=== PATIENT | female | born 1955 | race Caucasian/White ===

== ENCOUNTER 2018-12-20 09:57 | Observation (INO) ==
--- NOTE | 2018-12-19 10:42 | Anesthesiology Consultation ---
Date of Service December 19, 2018 Assessment & Plan (1) Encounter for pre-operative examination: - No previous anesthesia records Chart Review Chart Review: Acceptable Risk for Surgery and Patient NOT seen in Pre Admission Testing Consults Requested none History Surgery Operation Date: 12/20/18 11:15 Proposed Procedures p Laparoscopic Cholecystectomy, Possible Cholangiogram - Anatoly Montanez MD, FACS Height/Weight Height: 5 ft Weight: 73.482 kg Allergies Allergy/AdvReac Type Severity Reaction Status Date / Time codeine AdvReac Mild Gastrointestinal Verified 11/23/18 14:24 Upset cabbage AdvReac Unknown Verified 12/19/18 11:02 chocolate flavor AdvReac Unknown Verified 12/19/18 11:02 onion AdvReac Unknown Verified 12/19/18 11:02 Medications Home Medications Medication Instructions Recorded Confirmed Last Taken cetirizine [Zyrtec] 10 mg PO DAILY 10/25/18 11/23/18 Unknown pantoprazole 40 mg PO QAM 10/25/18 11/23/18 Unknown rosuvastatin 20 mg PO HS 10/25/18 11/23/18 Unknown sertraline 25 mg PO DAILY 10/25/18 11/23/18 Unknown hyoscyamine sulfate 0.125 mg PO Q6H PRN #14 tab 11/23/18 Unknown Past Medical History Medical History Ovarian cyst GERD (gastroesophageal reflux disease) (Chronic) Hypercholesterolemia (Chronic) Chronic back pain Environmental allergies Seasonal allergies Past Family History Family History Other History of appendectomy History of cholecystectomy Past Surgical History Surgical History History of dilatation and curettage History of hysterectomy Hx of tonsillectomy History of PONV History of PONV Social History Smoking Status: Never smoker Testing Laboratory Results Laboratory Tests 11/23/18 11/23/18 13:57 13:57 WBC 7.79 Hgb 14.5 Hct 41.7 Plt Count 328 Sodium 140 Potassium 3.5 Chloride 105 Carbon Dioxide 29 BUN 13 Creatinine 0.90 Glucose 97 Electrocardiogram Date: 11/23/18 Findings: + NSR @ (78) Normal sinus rhythm with sinus arrhythmia Chest X-Ray Date: 11/23/18 Findings: + NAD FINDINGS: Lung volumes are normal. Lungs are clear. No pneumothorax or pleural effusion is noted. Cardiac size is normal. Mediastinal contours are normal. There is no free air. Bowel gas pattern is normal. IMPRESSION: 1. No free air or evidence of bowel obstruction. 2. No acute cardiopulmonary findings.
[~2018-12-20 09:57] MED LIST: LR 15ML/HR IV SCH; SCOPOLAMINE 1.5 MG TDSY TD SCH; cefUROXime 1,500 MG in DEXTROSE 5% 100 ML IV SCH
[2018-12-20] MEDS ORDERED: fentaNYL citrate 100 MCG/2 ML VIAL ONE (10:38)
[2018-12-20] MEDS ORDERED: MIDAZOLAM HCL 1 MG/ML 2ML VIAL ONE (10:38)
[2018-12-20] MEDS ORDERED: ONDANSETRON INJ 2 MG/ML 2 ML VIAL IV PRN ×2 (11:05→13:59)
[2018-12-20] MEDS ORDERED: ATROPINE SULFATE 0.1 MG/ML 10ML SYR IV PRN (11:06)
[2018-12-20] MEDS ORDERED: ePHEDrine sulfate 50 MG/ML AMP IV PRN (11:06)
[2018-12-20] MEDS ORDERED: PROMETHAZINE HCL 6.25 MG in SODIUM CHLORIDE 0.9% 50 ML IV PRN (11:06)
[2018-12-20] MEDS ORDERED: CONRAY 60% 50 ML VIAL ONE (11:07)
[2018-12-20] MEDS ORDERED: BUPIVACAINE 0.5 % 5 MG/1 ML MPF 30ML VIAL ONE (11:07)
--- NOTE | 2018-12-20 11:19 | History & Physical Bridge Note ---
Date of Service December 20, 2018 History & Physical Bridge Note I have examined the patient, reviewed the History & Physical and in the interval since the performance of the History & Physical I have noted the following changes of clinical significance: no changes noted
[2018-12-20] MEDS ORDERED: LIDOCAINE HCL 2% 2 ML VIAL/AMP(20MG/ML) INFIL ONE (12:06)
[2018-12-20] MEDS ORDERED: ROCURONIUM BROMIDE 10 MG/ML 5 ML VIAL ONE (12:06)
[2018-12-20] MEDS ORDERED: PROPOFOL IV EMULSION 10 MG/ML 20 ML VIAL IV ONE (12:06)
[2018-12-20] MEDS ORDERED: ONDANSETRON INJ 2 MG/ML 2 ML VIAL ONE (12:06)
[2018-12-20] MEDS ORDERED: NEOSTIGMINE METHYLSULFATE 5 MG/5 ML SYR ONE (12:06)
[2018-12-20] MEDS ORDERED: GLYCOPYRROLATE 0.2 MG/ML VIAL ONE (12:07)
--- NOTE | 2018-12-20 12:33 | Operative Report ---
Post Operative Report Pre & Post Diagnosis Operation Date: 12/20/18 11:15 Pre-Op Diagnosis: Cholelithiasis, chronic cholecystitis Post-Op Diagnosis: Cholelithiasis, chronic cholecystitis adhesions, acute/ chronic cholecystitis Procedure Operation Date: 12/20/18 11:15 Actual Procedures p Laparoscopic Cholecystectomy (Not Applicable) - Anatoly Montanez MD, FACS lysis of adhesions Surgeon Anatoly Montanez MD, FACS [employer] nurses Estimated Blood Loss 5 Findings Consistent with Post-Op Diagnosis Specimens gallbladder Description of Procedure see dictation I attest to the content of the Intraoperative Record and any orders documented therein. Any exceptions are noted below.
[2018-12-20] MEDS ORDERED: ACETAMINOPHEN 1,000 MG/100 ML VIAL IV ONE (12:38)
[2018-12-20] MEDS ORDERED: KETOROLAC 30 MG/ML VIAL ONE (13:01)
[2018-12-20] MEDS ORDERED: KETOROLAC 30 MG/ML VIAL IV ONE (13:04)
--- NOTE | 2018-12-20 13:04 | Anesthesiology Progress Note ---
Date of Service December 20, 2018 Anesthesia Post Procedure Vital Signs Vital Signs: Temp Pulse Resp BP Pulse Ox 12/20/18 10:49 37.0 C 91 H 20 158/75 H 97 Transfer of Care Handoff Completed per policy Notes Mental Status: alert / awake / arousable Patient Amnestic to Procedure: Yes Nausea / Vomiting: adequately controlled Pain: adequately controlled Airway Patency, RR, SpO2: stable & adequate BP & HR: stable & adequate Hydration State: stable & adequate Anesthetic Complications: no major complications apparent
[2018-12-20] MEDS: fentaNYL citrate 100 MCG/2 ML VIAL IV PRN ×2 (13:21→13:26)
[2018-12-20] MEDS ORDERED: SERTRALINE HCL 50 MG TABLET PO SCH (13:59)
[2018-12-20] MEDS ORDERED: SODIUM CHLORIDE 0.9% 1000ML 1,000 ML IV SCH (13:59)
[2018-12-20] MEDS ORDERED: HYDROmorphone INJ 0.5 MG/0.5 ML SYR IV PRN (13:59)
[2018-12-20] MEDS ORDERED: TRAMADOL HCL 50 MG TABLET PO PRN (13:59)
[2018-12-20] MEDS ORDERED: PROMETHAZINE HCL 25 MG in SODIUM CHLORIDE 0.9% 50 ML IV PRN (13:59)
[2018-12-20] MEDS ORDERED: PROMETHAZINE HCL 12.5 MG in SODIUM CHLORIDE 0.9% 50 ML IV PRN (13:59)
[2018-12-20] MEDS ORDERED: IBUPROFEN 600 MG TAB PO PRN (13:59)
[2018-12-20 14:22] LABS: Basophils # (auto) 0.02 K/uL (0-0.2); Basophils % (auto) 0.2 %; Eosinophils # (auto) 0.02 K/uL (0-0.5); Eosinophils % (auto) 0.2 %; Hematocrit (blood only) 39.3 % (37-47); Hemoglobin 13.3 g/dL (12.0-16.0); Immature Granulocytes # (auto) 0.03 K/uL (0.00-0.02); Immature Granulocytes % (auto) 0.3 %; Lymphocytes # (auto) 0.82 K/uL (1.2-3.4); Lymphocytes % (auto) 7.7 %; Mean Corpuscular Hgb Conc 33.8 g/dL (32-36); Mean Platelet Volume 10.2 fL (7.4-10.4); Monocytes # (auto) 0.47 K/uL (0.11-0.59); Monocytes % (auto) 4.4 %; Neutrophils # (auto) 9.31 K/uL (1.4-6.5); Neutrophils % (auto) 87.2 %; Platelet Count 271 K/uL (130-400); RDW Coefficient of Variation 13.7 % (11.5-14.5); RDW Standard Deviation 41.7 fL (36.4-46.3); Red Blood Count 4.68 M/uL (4.2-5.4); White Blood Count 10.67 K/uL (4.8-10.8)
[2018-12-20 14:57] LABS: Albumin Level 3.4 gm/dl (3.4-5.0); BUN Creatinine Ratio 19.6 (10-20); Bilirubin Direct 0.3 mg/dl (0-0.2); Calcium 8.3 mg/dl (8.5-10.1); Creatinine Clr Calc Pharmacy 73.7 ml/min; Est GFR (African American) 104.8; Est GFR (Non-African American) 90.4; Potassium 3.8 mmol/L (3.5-5.1)
[2018-12-20 14:59] LABS: Albumin Globulin Ratio 1.1 (0.9-2); Bilirubin,Total 0.8 mg/dl (0.2-1); Globulin 3.1 gm/dl (2.5-4.0); Phosphorus 3.8 mg/dl (2.5-4.9); Total Protein 6.5 gm/dl (6.4-8.2)
--- NOTE | 2018-12-20 15:21 | Consultation ---
Date of Consultation December 20, 2018 Assessment & Plan (1) Chronic cholecystitis with calculus: (2) S/P laparoscopic cholecystectomy: POD #0 tolerated procedure well EBL 5 ml tolerating diet, per surgery wound/pain control per surgery activity as directed by surgery encourage incentive spirometry scd/teds for vte ppx follow h/h (3) Hypercholesterolemia: Continue statin (4) GERD (gastroesophageal reflux disease): Continue PPI (5) Depression: Mood stable Continue Zoloft, patient states she is currently weaning off Zoloft and has 2 more days. (6) DVT prophylaxis: SCD/TEDs per surgery Disposition: per primary, likely discharge to home Follow up: PCP Heather Arias PA-C upon discharge Patient was seen and examined in collaboration with Dr. Barton, please see addendum Supervising Physician Co-Signing Physician Notes Patient is a 63-year-old female with history of GERD, hyperlipidemia, restless leg syndrome, depression and other problems was seen and evaluated postop after having elective elective laparoscopic cholecystectomy. Patient is doing well postop. Denies any abdominal pain. Ambulating in hallways. Denies any chest pain, shortness of breath, dizziness, nausea. Tolerating diet. +flatus, nO BM yet. On exam patient is moderately built and nourished, no apparent distress, normocephalic atraumatic, lungs are clear to auscultation, S1-S2, no murmur, abdomen soft, nontender,+ laparoscopic incisions in dressing, grossly no focal neurological deficits, no pedal edema. Pain control, DVT prophylaxis as per primary team. Agree with current management as above. I personally reviewed the record. Patient is interviewed and examined at bedside. Patient's care is coordinated with Clementina Turcios PA-C. Please refer to the documentation above for details of patient's presentation and for discussion of other issues. History of Present Illness Requesting Physician: Dr. Montanez Reason for Consultation: Post op medical management Attending Physician: Anatoly Montanez MD, [facility] History of Present Illness This is a 63 yr old F who has a significant PMH of HLD, Gerd, Chronic back pain, Depression, RLS, OA who presents to [facility] ED for elective laparoscopic cholecystomy. Boyfriend, sister and Aunt at bedside. Pt tolerated procedure well. Pt underwent lap danielle with lysis of adhesions due to a/c cholecystitis with cholelithiasis. She offers no post operative complaints. Denies f/c/s, dizziness, lightheaded, f/c/s, chest pain, sob, n/v/d, abdominal pain. She has minimal incisional discomfort. Tolerating her lunch tray. Urinating with out difficulty[facility] Montanez for post operative medical management. Allergies Allergy/AdvReac Type Severity Reaction Status Date / Time latex Allergy Intermediate RASH NEAR Verified 12/20/18 10:41 MOUTH cabbage AdvReac Intermediate UPSET Verified 12/20/18 10:41 STOMACH chocolate flavor AdvReac Intermediate UPSET Verified 12/20/18 10:41 STOMACH codeine AdvReac Intermediate Gastrointestinal Verified 12/20/18 10:41 Upset onion AdvReac Intermediate UPSET Verified 12/20/18 10:41 ALLERGIES Home Medications Home Medications Medication Instructions Recorded Confirmed Type cetirizine [Zyrtec] 10 mg PO QAM 10/25/18 12/20/18 History pantoprazole 40 mg PO QAM 10/25/18 12/20/18 History rosuvastatin 20 mg PO HS 10/25/18 12/20/18 History sertraline 25 mg PO Q2D 10/25/18 12/20/18 History hyoscyamine sulfate 0.125 mg PO Q6H PRN #14 tab 11/23/18 12/20/18 Rx Patient History Family History Grandfather (Paternal) Diabetes Mother PAD (peripheral artery disease) Father Lung cancer Social History Preferred Language: Com[place]an Communication Ability: Effective Paper Sorter And Counter Required: No Beliefs That Will Affect Care: None marital status: Single marital status details: boyfriend in room Current Living Situation: Alone current occupational status: employed current occupation: work at [employer] Other Information That Helps Us Care for You: No Feels Safe at Home: Yes Safety Concerns: Feels Safe At This Time Smoking Status: Never smoker Do You Dip or Chew Tobacco: No Second Hand Exposure: Yes Tobacco Cessation Education Requested by Patient: No Hx Alcohol Use: No Hx Substance Use: No Review of Systems Review of Systems: As noted per HPI, 10 systems reviewed and negative unless noted above. Physical Exam Physical Exam: Gen: WD/WN, F, NAD, sitting up in bed, pleasant, conversing easily Head: Normocephalic, Atraumatic Eyes: Sclera normal, no conjunctival injection, PERRLA, EOMI ENT: Gross hearing intact, normal pharynx, mucous membranes moist Neck: supple, no adenopathy, No JVD, no bruit, Resp: Clear to auscultation b/l, no wheeze, rales, rhonchi. 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 Extremities: No edema bilaterally, SCD/TEDS in place Skin: warm, moist, no rash, negative turgor, cap refill < 2sec Neuro: Alert and oriented x 3, speech normal, good mood/affect, cran nerve 2-12 intact grossly : deferred Results & Data Vital Signs (Past 12 Hours) Vital Signs Temp Pulse Pulse Resp BP BP Pulse Ox 12/20/18 15:00 36.8 C 65 16 118/83 96 12/20/18 14:30 74 18 118/63 91 12/20/18 14:04 36.2 C L 62 16 118/73 95 12/20/18 13:35 36.4 C L 60 18 113/60 96 12/20/18 13:25 59 L 18 120/59 L 94 12/20/18 13:15 58 L 18 144/67 H 99 12/20/18 13:05 64 18 151/80 H 98 12/20/18 12:55 36.5 C 82 18 152/80 H 96 12/20/18 10:49 37.0 C 91 H 20 158/75 H 97 Laboratory Results Short CBC 12/20/18 Range/Units 14:12 WBC 10.67 (4.8-10.8) K/uL Hgb 13.3 (12.0-16.0) g/dL Hct 39.3 (37-47) % Plt Count 271 (130-400) K/uL BMP 12/20/18 14:12 Sodium 138 Potassium 3.8 Chloride 103 Carbon Dioxide 25 BUN 14 Creatinine 0.72 Glucose 91 Calcium 8.3 L Liver Function 12/20/18 Range/Units 14:12 Total Bilirubin 0.8 (0.2-1) mg/dl Direct Bilirubin 0.3 H (0-0.2) mg/dl AST 44 H (15-37) U/L ALT 47 (12-78) U/L Alkaline Phosphatase 91 (45-117) U/L Albumin 3.4 (3.4-5.0) gm/dl Medications Administered Scopolamine (Transderm-Scop) 1.5 mg TD PREOP CARLOS Stop: 12/20/18 18:00 Last Admin: 12/20/18 11:11 Dose: 1.5 mg Documented by: [id number] Tramadol HCl (Ultram) 50 mg PO Q4H PRN PRN Reason: Pain Stop: 01/19/19 13:58 Last Admin: 12/20/18 14:19 Dose: 50 mg Documented by: [id number] Discontinued Medications Bupivacaine HCl (Marcaine 0.5% Mpf) Confirm Administered Dose 30 ml .ROUTE .STK- MED ONE Stop: 12/20/18 11:08 Last Admin: 12/20/18 12:22 Dose: 10 ml Documented by: [id number] Fentanyl Citrate (Fentanyl Citrate) 50 mcg IV Q5M PRN PRN Reason: PACU Use Only-Pain Stop: 12/20/18 16:06 Last Admin: 12/20/18 13:26 Dose: 50 mcg Documented by: [id number] Admin: 12/20/18 13:21 Dose: 50 mcg Documented by: [id number] Lactated Ringer's (Lr) 1,000 mls @ 15 mls/hr IV .Q24H CARLOS Stop: 12/21/18 05:59 Last Infusion: 12/20/18 11:25 Dose: 0 mls/hr Documented by: [id number] Admin: 12/20/18 11:10 Dose: 15 mls/hr Documented by: [id number] Cefuroxime Sodium 1,500 mg/ (Dextrose) 115 mls @ 230 mls/hr IV PREOP CARLOS Stop: 12/20/18 18:00 Last Infusion: 12/20/18 15:06 Dose: 0 mls/hr Documented by: [id number] Admin: 12/20/18 11:25 Dose: 230 mls/hr Documented by: [id number] Acetaminophen (Ofirmev) 1,000 mg in 100 mls @ 400 mls/hr IV NOW ONE Stop: 12/20/18 12:52 Last Infusion: 12/20/18 15:05 Dose: 0 mls/hr Documented by: [id number] Admin: 12/20/18 13:11 Dose: 400 mls/hr Documented by: [id number] Iothalamate Meglumine (Conray 60%) Confirm Administered Dose 50 ml .ROUTE .STK- MED ONE Stop: 12/20/18 11:08 Last Admin: 12/20/18 12:22 Dose: Not Given Documented by: [id number] Ketorolac Tromethamine (Toradol) Confirm Administered Dose 30 mg .ROUTE .STK-MED ONE Stop: 12/20/18 13:02 Last Admin: 12/20/18 14:10 Dose: Not Given Documented by: [id number] Ketorolac Tromethamine (Toradol) 30 mg IV NOW ONE Stop: 12/20/18 13:05 Last Admin: 12/20/18 13:05 Dose: 30 mg Documented by: [id number] ECG Rate (beats per minute): 78 Rhythm: sinus with SA
[2018-12-20] MEDS ORDERED: CHECK SCOPOLAMINE PATCH PLACEMENT SCH (16:00)
[2018-12-20] MEDS ORDERED: ROSUVASTATIN CALCIUM 20 MG TAB PO SCH (21:00)
--- NOTE | 2018-12-20 23:21 | Operative Report ---
DATE OF OPERATION: 12/20/2018 NAME OF OPERATION: Laparoscopic cholecystectomy with lysis of adhesions. PREOPERATIVE DIAGNOSIS: Biliary colic. POSTOPERATIVE DIAGNOSIS: Biliary colic with chronic and acute cholecystitis with adhesions. STAFF SURGEON: Anatoly Montanez MD. ANESTHESIA: General. PROCEDURE DESCRIPTION: The patient was brought in the operating room and placed on the operating table in supine position. Her abdomen was prepped and draped in usual fashion. Pneumatic stockings, orogastric tube were placed. 0.5% plain Marcaine was used to anesthetize all incisions. Incision was made above the umbilicus, carrying dissection down through significant adipose tissue to the fascia, placing a Veress needle producing pneumoperitoneum. An 11 mm port was placed at this level and then under visualization three 5 mm were placed, 1 cephalad and 2 laterally. Gallbladder was grasped and retracted. It was extremely distended and there were adhesions to the gallbladder. These were taken down. Gallbladder was aspirated of bile. Dissection was carried out at the melonie hepatis, identifying the cystic duct and cystic artery. These were clipped and transected. I did attempt to pass a cholangiocath, but I could not safely pass it into the cystic duct. At this point, the gallbladder was dissected away from the liver bed in the usual fashion. There was acute inflammation as well as chronic inflammation. The gallbladder was placed in an Endobag. After appropriate hemostasis and irrigation, the Endobag was removed through the umbilical site. All ports were then removed. The fascia at the umbilicus was closed using interrupted 0 Vicryl suture. Skin at the umbilicus was closed using 5-0 Prolene suture as well as the lateral 5 mm port site. The other port sites were closed using subcuticular 4-0 Monocryl with Steri-Strips. The patient was transferred to recovery room in stable condition. I attest to the content of the Intraoperative Record and any orders documented therein. Any exception s are noted below.
--- NOTE | 2018-12-21 07:34 | Discharge Summary ---
PRINCIPAL DIAGNOSIS: Acute and chronic cholecystitis. PROCEDURES: The patient underwent laparoscopic cholecystectomy with lysis of adhesions. HISTORY OF PRESENT ILLNESS: The patient is a 63-year-old female who has had intermittent and recurrent abdominal pain with nausea which has been worsening. I evaluated by GI and myself and at this point proceeding with laparoscopic cholecystectomy. HOSPITAL COURSE: She was brought into the hospital on 12/20/2018 after being seen in the office the day before where she underwent laparoscopic cholecystectomy. She did very well. She did have adhesions. She had evidence of acute and chronic disease. She has done quite well overnight and is felt stable for discharge home today to be followed in the surgical clinic within 1 week.
--- NOTE | 2018-12-21 08:15 | Anesthesiology Progress Note ---
Date of Service December 21, 2018 Anesthesia Post Procedure Vital Signs Vital Signs: Temp Pulse Pulse Resp BP BP Pulse Ox 12/21/18 07:40 36.8 C 62 18 132/58 L 96 12/21/18 03:13 36.9 C 57 L 16 106/54 L 93 12/20/18 22:18 36.9 C 58 L 16 113/62 93 12/20/18 17:01 36.6 C 74 18 143/53 H 92 12/20/18 16:03 36.6 C 63 16 127/66 97 12/20/18 15:00 36.8 C 65 16 118/83 96 12/20/18 14:30 74 18 118/63 91 12/20/18 14:04 36.2 C L 62 16 118/73 95 12/20/18 13:35 36.4 C L 60 18 113/60 96 12/20/18 13:25 59 L 18 120/59 L 94 12/20/18 13:15 58 L 18 144/67 H 99 12/20/18 13:05 64 18 151/80 H 98 12/20/18 12:55 36.5 C 82 18 152/80 H 96 12/20/18 10:49 37.0 C 91 H 20 158/75 H 97 Pain Intensity Abdomen: Pain Intensity: 3 Notes Mental Status: alert / awake / arousable and participated in evaluation Patient Amnestic to Procedure: Yes Nausea / Vomiting: adequately controlled Pain: adequately controlled Airway Patency, RR, SpO2: stable & adequate BP & HR: stable & adequate Hydration State: stable & adequate Anesthetic Complications: no major complications apparent and Pt Satisfied with anesthetic care
[2018-12-21] MEDS ORDERED: PANTOprazole 40 MG TAB PO SCH (09:00)
== END 2018-12-21 11:16 | disposition home or self-care (01) ==
LOC: ASU 09:57 → 3W 09:57